=== PATIENT | female | born 1975 | race Caucasian/White ===

== ENCOUNTER 2016-12-04 07:35 | Emergency (ER) | payer SELFPAY ==
[~2016-12-04] VITALS: Ht 165.1 cm; Wt 91.7 kg
[2016-12-04 08:23] LABS: HEMATOCRIT 38.3 % (36.0-46.0); MCHC 33.9 G/DL (30.0-36.0); MCV 88.2 FL (83-99); MEAN PLAT.VOLUME 10.6 uM^3 (9.5-12.4); PLATELET COUNT 289 K/uL (156-360); RBC DIS.WIDTH-CV 12.2 % (11.8-14.6); RBC DIS.WIDTH-SD 39.4 % (39-53); RED BLOOD COUNT 4.34 M/uL (3.80-5.20); WHITE BLOOD COUNT 9.1 K/uL (4.1-10.2)
[2016-12-04 08:33] LABS: CHLORIDE 108 mEq/L (99-109); POTASSIUM 4.1 mEq/L (3.7-5.4); SODIUM 139 mEq/L (136-147)
[2016-12-04 08:35] LABS: GLUCOSE 100 mg/dL (70-99)
[2016-12-04 08:36] LABS: ANION GAP 8 MEQ/L (2-14)
[2016-12-04 08:40] LABS: GFR ESTIMATE (CALCULATED) > 59 mL/min/; UREA NITROGEN (BUN) 8 mg/dL (9-23)
[2016-12-04 08:45] LABS: TROP-I INTERPRETATION NEGATIVE; TROPONIN-I < 0.01 ng/mL (0.0-0.30)
[2016-12-04 09:04] VITALS: BP 131/84
[2016-12-04] MEDS ORDERED: PEPCID20 MG PO (10:34)
[2016-12-04] MEDS ORDERED: CARAFATE1 GM PO (10:34)
== END 2016-12-04 10:52 | disposition home or self-care (01) ==
LOC: EME 07:35
DX: R07.89 Other chest pain (principal); F17.200 Nicotine dependence, unspecified, uncomplicated; Z82.49 Family history of ischemic heart disease and other diseases of the circulatory system
CPT/HCPCS: 71020; 80048; 84484; 85027; 93005; 99281; 99284

== ENCOUNTER 2018-01-24 01:20 | Emergency (ER) | payer SELFPAY ==
[~2018-01-24] VITALS: Ht 162.6 cm; Wt 86.6 kg
[~2018-01-24 01:20] MED LIST: CARAFATE1 GM PO; PEPCID20 MG PO
[2018-01-24 02:01] LABS: HEMATOCRIT 38.3 % (36.0-46.0); HEMOGLOBIN 13.1 G/DL (11.9-15.5); MCH 30.5 PG (29.0-34.0); MCHC 34.2 G/DL (30.0-36.0); MCV 89.1 FL (83-99); PLATELET COUNT 369 K/uL (156-360); RBC DIS.WIDTH-CV 12.3 % (11.8-14.6); RBC DIS.WIDTH-SD 39.9 % (39-53); WHITE BLOOD COUNT 8.7 K/uL (4.1-10.2)
[2018-01-24 02:08] LABS: ALBUMIN 4.1 g/dL (3.2-4.8)
[2018-01-24 02:09] LABS: CHLORIDE 109 mEq/L (99-109); SODIUM 140 mEq/L (136-147)
[2018-01-24 02:11] LABS: GLUCOSE 104 mg/dL (70-99); TOTAL PROTEIN 6.8 g/dL (6.4-8.3)
[2018-01-24 02:13] LABS: TOTAL BILIRUBIN 0.4 mg/dL (0.0-1.0)
[2018-01-24 02:14] LABS: ALKALINE PHOSPHATASE 55 IU/L (3-129)
[2018-01-24 02:15] LABS: CREATININE 0.8 mg/dL (0.6-1.3); GFR ESTIMATE (CALCULATED) > 59 mL/min/
[2018-01-24 02:16] LABS: AST (GOT) 20 IU/L (2-34); UREA NITROGEN (BUN) 9 mg/dL (9-23)
[2018-01-24 02:17] LABS: ALT (GPT) 23 IU/L (3-49)
[2018-01-24 02:28] LABS: QUANTITATIVE HCG < 4.0 MIU/ML
[2018-01-24 03:19] VITALS: BP 132/88
== END 2018-01-24 03:19 | disposition home or self-care (01) ==
LOC: EME 01:20
DX: K64.8 Other hemorrhoids (principal); F41.9 Anxiety disorder, unspecified; F42.9 Obsessive-compulsive disorder, unspecified; F17.200 Nicotine dependence, unspecified, uncomplicated
CPT/HCPCS: 80053; 84702; 85027; 99281; 99284